=== PATIENT | male | born 1995 | race African-American/Black ===

== ENCOUNTER 2017-01-04 12:48 | Emergency (ER) | payer SELFPAY ==
[2017-01-04 12:57] VITALS: BP 130/53; PULSE 57; TEMP 98; BMI 36.0
[2017-01-04] MEDS ORDERED: KETOROLAC TROMETHAMINE 60 MG/2 ML VIAL IM ONE (13:45)
--- NOTE | 2017-01-04 13:48 | PDOC ---
History of Present Illness - General Chief Complaint: Pain Stated Complaint: RT KNEE PAIN Time Seen by Provider: 01/04/17 13:06 - History of Present Illness Initial Comments: 01/04/17 13:44 CHIEF COMPLAINT: pain to R knee HISTORY OF PRESENT ILLNESS: 21 yo M with no PMH presents to [facility] with pain to R knee x 2 months. Patient reports that he feels like "my knee is clicking" sometimes. 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 He denies any recent trauma or injury, denies any fever, nausea, chills, vomiting, diarrhea. No recent travel or sick contacts. PAST MEDICAL HISTORY: Denies past medical history FAMILY HISTORY: Denies SOCIAL HISTORY: Current smoker, 4 cigarettes daily. Denies alcohol, illicit drug use. SURGICAL HISTORY: Denies ALLERGIES: seafood REVIEW OF SYSTEMS General/Constitutional: Denies fever or chills. Denies weakness, weight change. Cardiovascular: Denies chest pain or shortness of breath. Respiratory: Denies cough, wheezing, or hemoptysis. Gastrointestinal: Denies nausea, vomiting, diarrhea. Musculoskeletal: Pain and "clicking" to R knee. Skin: Denies rash or bruising. PHYSICAL EXAM General Appearance: Well-appearing, appropriately dressed. No apparent distress. HEENT: EOMI, PERRLA. Neck: Supple. Trachea midline. No tenderness, rigidity, carotid bruit, stridor , lymphadenopathy, or thyromegaly. Respiratory/Chest: Lungs CTAB. Cardiovascular: RRR. S1, S2. Musculoskeletal/Extremities: Positive valgus stress test, negative varus stress test. No tenderness, erythema, or edema to R knee. Negative anterior and posterior drawer tests. Normal inspection. FROM of all extremities, normal capillary refill. Pelvis Stable. No CVA tenderness. No tenderness to extremities, pedal edema, swelling, erythema or deformity. Integumentary: Appropriate color, dry, warm. No cyanosis, erythema, jaundice or rash Neurologic: test manager II-XII intact. Fully oriented, alert. Appropriate mood/affect. Motor strength 5/5. No appreciable EOM palsy, facial droop or sensory deficit. Past History - Past Medical History Allergies/Adverse Reactions: Allergies Allergy/AdvReac Type Severity Reaction Status Date / Time SEAFOOD Allergy Rash Uncoded 01/04/17 12:58 Home Medications: Ambulatory Orders Naproxen [Naprosyn -] 250 mg PO BID #14 tablet 01/04/17 Other medical history: NONE - Immunization History Immunization Up to Date: Yes - Psycho/Social/Smoking Cessation Hx Anxiety: No Suicidal Ideation: No Smoking History: Current every day smoker Number of Cigarettes Smoked Daily: 5 Information on smoking cessation initiated: No Hx Alcohol Use: Yes (SOCIAL) Drug/Substance Use Hx: No Substance Use Type: None *Physical Exam - Vital Signs Last Vital Signs Temp Pulse Resp BP Pulse Ox 98.0 F 57 L 18 130/53 99 01/04/17 12:54 01/04/17 12:54 01/04/17 12:54 01/04/17 12:54 01/04/17 12:54 Medical Decision Making - Medical Decision Making 01/04/17 13:48 21 yo M with no PMH presents [facility] with pain to R knee x 2 months. -60 mg Toradol Patient refuses Toradol. Naproxen sent to pharm. Advised patient to f/u with orthopedics for possible PT or MRI. Advised patient of signs and symptoms for return to ER; patient verbalized understanding and agrees to plan. 01/04/17 14:04 *DC/Admit/Observation/Transfer Diagnosis at time of Disposition: Right knee pain Qualifiers: Chronicity: chronic Qualified Code(s): M25.561 - Pain in right knee - Discharge Dispostion Disposition: HOME Condition at time of disposition: Stable Admit: No - Prescriptions Prescriptions: Naproxen [Naprosyn -] 250 mg PO BID #14 tablet - Referrals Referrals: Rich Guido MD [Primary Care Provider] - Casey Dickinson MD [Staff Physician] - - Patient Instructions Printed Discharge Instructions: DI for Knee Pain Additional Instructions: Please take medication as prescribed. Follow up with orthopedics if symptoms persist past 5-7 days. If you experience any swelling, redness, or warmth to your knee, or any fever, chills, nausea, vomiting, or diarrhea, or any loss of sensation to your legs or feet, please return to the ER. - Post Discharge Activity Work/School Note: Back to Work
== END 2017-01-04 14:26 | disposition home or self-care (01) ==
LOC: JERFT 12:48
PROC: 3E0233Z Introduction of Anti-inflammatory into Muscle, Percutaneous Approach (ICD-10-PCS; principal; 2017-01-04)
DX: M25.561 Pain in right knee (principal)
CPT/HCPCS: 99281-25

== ENCOUNTER 2020-01-15 14:44 | Emergency (ER) | payer OTHER ==
--- NOTE | 2020-01-15 14:50 | PDOC ---
Rapid Medical Evaluation Chief Complaint: Pain, Acute Time Seen by Provider: 01/15/20 14:48 Medical Evaluation: Allergies Allergy/AdvReac Type Severity Reaction Status Date / Time SEAFOOD Allergy Rash Uncoded 01/04/17 12:58 01/15/20 14:49 I have performed a brief in-person evaluation of this patient. The patient presents with a chief complaint of: R shoulder pain x several days. No trauma. Do "flagging" for a living Pertinent physical exam findings:stable, NAD I have ordered the following:nothing The patient will proceed to the ED for further evaluation. Discharge Disposition - Diagnosis Shoulder pain - Referrals - Patient Instructions - Post Discharge Activity
[2020-01-15 14:51] VITALS: BP 123/54; PULSE 58; TEMP 98.5; BMI 27.3
[2020-01-15] MEDS ORDERED: KETOROLAC TROMETHAMINE 30 MG/1 ML VIAL IM ONE (15:38)
--- NOTE | 2020-01-15 15:40 | PDOC ---
History of Present Illness - General Chief Complaint: Pain, Acute Stated Complaint: SHOULDER PAIN Time Seen by Provider: 01/15/20 14:48 History Source: Patient Exam Limitations: No Limitations - History of Present Illness Initial Comments: 01/15/20 15:51 24 year old male no significant pmhx presenting with R shoulder pain x 2 months. Pt denies any trauma to the area however states he has pain on ROM and when throwing. Pt has not taken any medicine for the pain. Pt is right hand dominant and states pain is achy in nature. Pt otherwise denies: fevers, chills, syncope, lightheadedness, dizziness, headaches, neck pain, chest pain, shortness of breath, palpitations, back pain, abdominal pain, nausea, vomiting, diarrhea. Past History - Medical History Allergies/Adverse Reactions: Allergies Allergy/AdvReac Type Severity Reaction Status Date / Time SEAFOOD Allergy Rash Uncoded 01/15/20 14:51 Home Medications: Ambulatory Orders Naproxen [Naprosyn -] 250 mg PO BID #14 tablet 01/04/17 Ibuprofen [Ibu] 600 mg PO TID 7 Days #21 tablet 01/15/20 COPD: No - Immunization History Immunization Up to Date: Yes - Psycho-Social/Smoking History Smoking History: Current every day smoker Number of Cigarettes Smoked Daily: 5 Information on smoking cessation initiated: No - Substance Abuse Hx (Audit-C & DAST Scrn) How often the patient has a drink containing alcohol: Monthly or less Score: In Men: 4 or > Positive; In Women: 3 or > Positive: 1 Screen Result (Pos requires Nsg. Audit-10AR): Negative Review of Systems - Review of Systems Constitutional: No: Chills, Fever, Weakness HEENTM: No: Blurred Vision Respiratory: No: Shortness of Breath Cardiac (ROS): No: Chest Pain ABD/GI: No: Abdominal Distended, Nausea, Vomiting : No: Dysuria Musculoskeletal: Yes: Joint Pain, Muscle Pain. No: Back Pain Integumentary: No: Bruising Neurological: No: Headache, Numbness, Paresthesia, Tingling *Physical Exam - Vital Signs Last Vital Signs Temp Pulse Resp BP Pulse Ox 98.5 F 58 L 18 123/54 L 99 01/15/20 14:48 01/15/20 14:48 01/15/20 14:48 01/15/20 14:48 01/15/20 14:48 - Physical Exam 01/15/20 15:54 Gen: AAOx 3, no acute distress, comfortable, no signs of respiratory distress HENT: atraumatic, normocephalic with no laceration or contusion. Nasal mucosa without erythema. Oropharynx without erythema or exudates. Mucous membranes moist. EYES: PERRL, EOM intact, conjunctiva pink NECK: supple; trachea midline; no JVD, no lymphadenopathy, or thyromegaly CV: RRR no murmurs, gallops, or rubs. CHEST: CTA b/l no wheezing, rales or rhonchi ABD: +BS/ND. no TTP; soft, no rebound, no guarding EXTREMITY: no cyanosis or erythema. 2+ dorsalis pedis, posterior tibial, and radial pulse. No pedal edema; no calf swelling or tenderness SKIN: no rash, warm and dry, no diaphoresis HEME: no purpura or ecchymosis NEURO: normal speech, CN II-XII intact, sensation intact, normal gait, no cerebellar deficits MS: 5/5 strength in all extremities, FROM intact in all extremities except RUE RUE: TTP to posterior scapular as well as AC joint. FROM negative open can test and aply scratch test. Sensation intact ED Treatment Course - RADIOLOGY Radiology Studies Ordered: Category Date Time Status SHOULDER-RIGHT [RAD] Stat Radiology 01/15/20 15:37 Ordered Medical Decision Making - Medical Decision Making 24-year-old male with 2 months of right shoulder pain Vital signs stable Will obtain right shoulder x-ray and give ibuprofen for pain X-ray negative for any acute findings Patient to follow-up with orthopedics for further evaluation Ibuprofen sent for pain management to patient preferred pharmacy Patient appears well and safe and stable for discharge Supportive care instructions explained and given to pt. Reasons to return emergently to ER explained and given. Importance of follow up with PMD and other specialists as indicated stressed to pt. Pt verbalized understanding of instructions. Pt to follow up with PMD in 2 days. 01/15/20 15:55 Discharge - Discharge Information Problems reviewed: Yes Clinical Impression/Diagnosis: Shoulder pain Condition: Stable Disposition: HOME - Additional Discharge Information Prescriptions: Ibuprofen [Ibu] 600 mg PO TID 7 Days #21 tablet - Follow up/Referral Referrals: Rich Guido MD [Primary Care Provider] - Casey Dickinson MD [Staff Physician] - Chirag Chiu MD [Staff Physician] - - Patient Discharge Instructions Patient Printed Discharge Instructions: DI for Shoulder Pain - Post Discharge Activity
[2020-01-15] MEDS ORDERED: KETOROLAC TROMETHAMINE 30 MG/1 ML VIAL ONE (15:41)
[2020-01-15] MEDS ORDERED: IBUPROFEN 600 MG TABLET (FP) PO ONE ×2 (15:44→15:51)
== END 2020-01-15 16:47 | disposition home or self-care (01) ==
LOC: JERFT 14:44
PROC: 3E023GC Introduction of Other Therapeutic Substance into Muscle, Percutaneous Approach (ICD-10-PCS; principal; 2020-01-15)
DX: M25.511 Pain in right shoulder (principal)
CPT/HCPCS: 73030-TC-RT-FY; 99284-25

== ENCOUNTER 2022-02-02 13:01 | Emergency (ER) | payer OTHER ==
[2022-02-02 13:14] VITALS: BP 118/62; PULSE 52; RESP 20; TEMP 97.9; BMI 26.4
[2022-02-02] MEDS ORDERED: KETOROLAC TROMETHAMINE 30 MG/1 ML VIAL ONE (14:02)
[2022-02-02] MEDS: KETOROLAC TROMETHAMINE 30 MG/1 ML VIAL IM ONE ×2 (14:03→14:25)
[2022-02-02] MEDS ORDERED: KETOROLAC TROMETHAMINE 10 MG TABLET PO ONE ×2 (14:25→14:32)
[2022-02-02] MEDS ORDERED: LIDOCAINE 5% TOPICAL PATCH TP ONE (14:29)
[2022-02-02] MEDS ORDERED: LIDOCAINE 5% TOPICAL PATCH ONE (14:32)
[2022-02-02] MEDS ORDERED: LIDOCAINE PATCH REMOVAL MC ONE (22:00)
== END 2022-02-02 14:52 | disposition home or self-care (01) ==
LOC: JER 13:01
DX: M25.512 Pain in left shoulder (principal); M79.10 Myalgia, unspecified site; V89.2XXA Person injured in unspecified motor-vehicle accident, traffic, initial encounter
CPT/HCPCS: 73030-TC-LT-FY; 99283-25

== ENCOUNTER 2022-02-07 16:33 | Emergency (ER) | payer OTHER ==
[2022-02-07 17:20] VITALS: BP 119/72; PULSE 51; RESP 18; TEMP 98; BMI 27.1
== END 2022-02-07 18:53 | disposition home or self-care (01) ==
LOC: JERFT 16:33
DX: R51.9 Headache, unspecified (principal)
CPT/HCPCS: 99283-25

== ENCOUNTER 2022-05-20 11:09 | Emergency (ER) | payer OTHER ==
[2022-05-20 11:28] VITALS: BP 117/60; PULSE 63; RESP 16; TEMP 98.1; BMI 27.1
[2022-05-20] MEDS ORDERED: IBUPROFEN 600 MG TABLET (FP) PO ONE (11:49)
[2022-05-20] MEDS ORDERED: METHOCARBAMOL 500 MG TABLET PO ONE (11:49)
== END 2022-05-20 11:55 | disposition home or self-care (01) ==
LOC: JERFT 11:09
DX: M54.2 Cervicalgia (principal); V89.2XXA Person injured in unspecified motor-vehicle accident, traffic, initial encounter; Y92.9 Unspecified place or not applicable
CPT/HCPCS: 99283-25